=== PATIENT | male | born 1940 | race Caucasian/White ===

== ENCOUNTER 2017-10-04 00:20 | Observation (INO) | payer OTHER ==
--- NOTE | 2017-10-04 00:38 | CPEKG ---
Heart Rate: 73 RR Interval: 822 P-R Interval: 196 QRSD Interval: 136 QT Interval: 436 QTC Interval: 481 P [place]: 49 QRS [place]: 102 T Wave [place]: 8 EKG Severity - ABNORMAL ECG - EKG Impression: SINUS RHYTHM EKG Impression: RBBB AND LPFB Electronically Signed By: Migue Hill 04-Oct-2017 09:31:12
[2017-10-04 01:32] LABS: PLATELET COUNT 138 10^3/uL (150-400)
--- NOTE | 2017-10-04 01:52 | EDPHY ---
H & P Stated Complaint: cp Time Seen by Provider: 10/04/17 01:04 HPI/ROS: HPI The patient presents with chest pain which began at 5:00 p.m. Tonight while he was at rest. He describes it as a stinging left-sided chest pain that was intermittent. It feels like his prior NC that he had in February though is more subtle. The pain is not associated with any shortness of breath, nausea, vomiting, dizziness, diaphoresis. He took 2 doses of aspirin and called an advice line and was instructed to come into the emergency department. He has a history of an NC in February of 2017. He does walk daily about 45 min and does not experience chest pain . REVIEW OF SYSTEMS Constitutional: No fever, no chills. Eyes: No discharge. ENT: No sore throat. Cardiovascular: Positive for chest pain, no palpitations. Respiratory: No cough, no shortness of breath. Gastrointestinal: No abdominal pain, no vomiting. Genitourinary: No hematuria. Musculoskeletal: No back pain. Skin: No rashes. Neurological: No headache. PMHx: Known CAD Soc Hx: Housed PHYSICAL General Appearance: Alert, no distress Eyes: Pupils equal and round no pallor or injection ENT, Mouth: Mucous membranes moist Respiratory: There are no retractions, lungs are clear to auscultation Cardiovascular: Regular rate and rhythm Gastrointestinal: Abdomen is soft and non-tender, no masses, bowel sounds normal Neurological: A&O, moves all extremities Skin: Warm and dry, no rashes Musculoskeletal: Neck is supple non tender Extremities: symmetrical, full range of motion Psychiatric: Patient is oriented X 3, there is no agitation Source: Patient Exam Limitations: No limitations - Personal History Current Tetanus Diphtheria and Acellular Pertussis (TDAP): Yes - Medical/Surgical History Hx Asthma: No Hx Chronic Respiratory Disease: No Hx Diabetes: No Hx Cardiac Disease: No Hx Renal Disease: No Hx Cirrhosis: No Hx Alcoholism: No Hx HIV/AIDS: No Hx Splenectomy or Spleen Trauma: No Other PMH: appy ,mi, cardiac stents. tonsils. amp thumb as child - Social History Smoking Status: Former smoker Constitutional: Initial Vital Signs Temperature (C) 36.7 C 10/04/17 00:30 Heart Rate 72 10/04/17 00:30 Respiratory Rate 16 10/04/17 00:30 Blood Pressure 135/82 H 10/04/17 00:30 O2 Sat (%) 94 10/04/17 00:30 O2 Delivery Mode Room Air Allergies/Adverse Reactions: iodine Allergy (Verified 12/06/15 01:17) Home Medications: Medication Instructions Recorded Acyclovir [Zovirax 400 mg (*)] 400 mg PO TID 10/04/17 Bisoprolol Fumarate [Zebeta (*)] 2.5 mg PO DAILY 10/04/17 Efinaconazole [Jublia] 4 ml TP 10/04/17 Finasteride [Proscar 5 MG (*)] 5 mg PO DAILY 10/04/17 Simvastatin [Zocor] 40 mg PO 10/04/17 Ticagrelor [Brilinta] 90 mg PO BID 10/04/17 Medical Decision Making - Diagnostics EKG Interpretation: EKG: Complete interpretation has been separately recorded in the [facility] archive. 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 Differential Diagnosis: This is a 77-year-old male with known CAD status post stents placed for acute NC in February of 2017 who presents with chest pain lasting for several hours, occurring at rest, now resolved. Differential diagnosis includes ACS, costochondritis, GERD. In the emergency department, EKG, chest x-ray, basic labs were obtained. These were all normal. Patient does have right bundle-branch block. I do not have an old EKG for comparison. Given his history of CAD with pain which feels similar to his prior NC, I feel he should be admitted to the hospitalist. I have discussed the case with Dr. Krishna who will admit the patient. The patient is in agreement with the plan. - Data Points Laboratory Results: Laboratory Results 10/04/17 00:43 10/04/17 00:43 10/04/17 10/04/17 00:43 00:43 WBC 6.05 10^3/uL 10^3/uL (3.80-9.50) RBC 4.60 10^6/uL 10^6/uL (4.40-6.38) Hgb 14.3 g/dL g/dL (13.7-17.5) Hct 40.7 % % (40.0-51.0) MCV 88.5 fL fL (81.5-99.8) MCH 31.1 pg pg (27.9-34.1) MCHC 35.1 g/dL g/dL (32.4-36.7) RDW 14.4 % % (11.5-15.2) Plt Count 138 10^3/uL L 10^3/uL (150-400) MPV 9.0 fL fL (8.7-11.7) Neut % (Auto) 62.8 % % (39.3-74.2) Lymph % (Auto) 22.5 % % (15.0-45.0) [place] % (Auto) 7.4 % % (4.5-13.0) Eos % (Auto) 6.3 % % (0.6-7.6) Baso % (Auto) 0.7 % % (0.3-1.7) Nucleat RBC Rel Count 0.0 % % (0.0-0.2) Absolute Neuts (auto) 3.80 10^3/uL 10^3/uL (1.70-6.50) Absolute Lymphs (auto) 1.36 10^3/uL 10^3/uL (1.00-3.00) Absolute Monos (auto) 0.45 10^3/uL 10^3/uL (0.30-0.80) Absolute Eos (auto) 0.38 10^3/uL 10^3/uL (0.03-0.40) Absolute Basos (auto) 0.04 10^3/uL 10^3/uL (0.02-0.10) Absolute Nucleated RBC 0.00 10^3/uL 10^3/uL (0-0.01) Immature Gran % 0.3 % % (0.0-1.1) Immature Gran # 0.02 10^3/uL 10^3/uL (0.00-0.10) Sodium 138 mEq/L mEq/L (135-145) Potassium 4.2 mEq/L mEq/L (3.5-5.2) Chloride 101 mEq/L mEq/L (97-110) Carbon Dioxide 27 mEq/l mEq/l (22-31) Anion Gap 10 mEq/L mEq/L (8-16) BUN 18 mg/dL mg/dL (7-23) Creatinine 1.0 mg/dL mg/dL (0.7-1.3) Estimated GFR > 60 Glucose 100 mg/dL mg/dL (70-100) Calcium 9.3 mg/dL mg/dL (8.5-10.4) Troponin I < 0.012 ng/mL ng/mL (0.000-0.034) Departure - Departure Disposition: Home, Routine, Self-Care Clinical Impression: Chest pain Qualifiers: Chest pain type: unspecified Qualified Code(s): R07.9 - Chest pain, unspecified Condition: Good
[2017-10-04] MEDS ORDERED: ONDANSETRON DISINTEGRATING 4 MG TAB PO PRN (02:28)
[2017-10-04] MEDS ORDERED: ACETAMINOPHEN 325 MG TAB PO PRN (02:28)
[2017-10-04] MEDS ORDERED: ONDANSETRON 4 MG/2 ML VIAL IVP PRN (02:28)
--- NOTE | 2017-10-04 02:50 | PDGENHP ---
History and Physical - Chief Complaint Chest pain - History of Present Illness 77 yo M w/ hx of CAD presents after chest pain. Patient became upset today and then began to notice sharp, stinging left sided chest pain. This persisted for about 7 hours without significant change. He did walk up some stairs during this episode of pain and it did not seem to affect the pain. He denies any associated symptoms. He called the [facility] RN line and was advised to come to the ED for evaluation. He is currently comfortable and chest pain free. History Information - Allergies/Home Medication List Allergies/Adverse Reactions: iodine Allergy (Verified 12/06/15 01:17) Home Medications: Aspirin 10/04/17 [Last Taken Unknown] Bisoprolol Fumarate 10/04/17 [Last Taken Unknown] Brilinta 10/04/17 [Last Taken Unknown] Esomeprazole Sodium 10/04/17 [Last Taken Unknown] SIMVASTATIN 10/04/17 [Last Taken Unknown] Tamsulosin HCl 10/04/17 [Last Taken Unknown] I have personally reviewed and updated: family history, medical history - Past Medical History coronary artery disease - Family History Positive for: male first degree with history of premature CAD - Social History Smoking Status: Former smoker Review of Systems Review of Systems: ROS: 10pt was reviewed & negative except for what was stated in HPI & below Physical Exam Physical Exam: Temp Pulse Resp BP Pulse Ox 36.7 C 72 16 135/82 H 94 10/04/17 00:30 10/04/17 00:30 10/04/17 00:30 10/04/17 00:30 10/04/17 00:30 Constitutional: no apparent distress, not in pain Eyes: PERRL, EOMI Ears, Nose, Mouth, Throat: moist mucous membranes, no oral mucosal ulcers Cardiovascular: regular rate and rhythym, systolic murmur Respiratory: no respiratory distress, no rales or rhonchi Skin: warm, normal color Musculoskeletal: full muscle strength, no muscle tenderness Neurologic: AAOx3, CN II-XII Intact Psychiatric: interacting appropriately, not anxious Lab Data & Imaging Review 10/04/17 00:43 10/04/17 00:43 WBC 6.05 10^3/uL (3.80-9.50) 10/04/17 00:43 RBC 4.60 10^6/uL (4.40-6.38) 10/04/17 00:43 Hgb 14.3 g/dL (13.7-17.5) 10/04/17 00:43 Hct 40.7 % (40.0-51.0) 10/04/17 00:43 MCV 88.5 fL (81.5-99.8) 10/04/17 00:43 MCH 31.1 pg (27.9-34.1) 10/04/17 00:43 MCHC 35.1 g/dL (32.4-36.7) 10/04/17 00:43 RDW 14.4 % (11.5-15.2) 10/04/17 00:43 Plt Count 138 10^3/uL (150-400) L 10/04/17 00:43 MPV 9.0 fL (8.7-11.7) 10/04/17 00:43 Neut % (Auto) 62.8 % (39.3-74.2) 10/04/17 00:43 Lymph % (Auto) 22.5 % (15.0-45.0) 10/04/17 00:43 [place] % (Auto) 7.4 % (4.5-13.0) 10/04/17 00:43 Eos % (Auto) 6.3 % (0.6-7.6) 10/04/17 00:43 Baso % (Auto) 0.7 % (0.3-1.7) 10/04/17 00:43 Nucleat RBC Rel Count 0.0 % (0.0-0.2) 10/04/17 00:43 Absolute Neuts (auto) 3.80 10^3/uL (1.70-6.50) 10/04/17 00:43 Absolute Lymphs (auto) 1.36 10^3/uL (1.00-3.00) 10/04/17 00:43 Absolute Monos (auto) 0.45 10^3/uL (0.30-0.80) 10/04/17 00:43 Absolute Eos (auto) 0.38 10^3/uL (0.03-0.40) 10/04/17 00:43 Absolute Basos (auto) 0.04 10^3/uL (0.02-0.10) 02/23/18 00:43 Absolute Nucleated RBC 0.00 10^3/uL (0-0.01) 10/04/17 00:43 Immature Gran % 0.3 % (0.0-1.1) 10/04/17 00:43 Immature Gran # 0.02 10^3/uL (0.00-0.10) 10/04/17 00:43 Sodium 138 mEq/L (135-145) 10/04/17 00:43 Potassium 4.2 mEq/L (3.5-5.2) 10/04/17 00:43 Chloride 101 mEq/L (97-110) 10/04/17 00:43 Carbon Dioxide 27 mEq/l (22-31) 10/04/17 00:43 Anion Gap 10 mEq/L (8-16) 10/04/17 00:43 BUN 18 mg/dL (7-23) 10/04/17 00:43 Creatinine 1.0 mg/dL (0.7-1.3) 10/04/17 00:43 Estimated GFR > 60 10/04/17 00:43 Glucose 100 mg/dL (70-100) 10/04/17 00:43 Calcium 9.3 mg/dL (8.5-10.4) 10/04/17 00:43 Troponin I < 0.012 ng/mL (0.000-0.034) 10/04/17 00:43 Visualized and Interpreted EKG results: Yes EKG Interpretation: Positive for: normal sinsus rhythm, right bundle branch block Assessment & Plan Assessment: 77 yo M w/ hx of CAD presents with chest pain. Plan: 1. Chest pain - Present for about 7 hours after episode of emotional stress. Not classic for anginal chest pain noting no variation with activity but does have history of stent placement last February. HEART score of 4 so will be admitted for inpatient risk stratification. - Admit to PCU for observation - Monitor on telemetry, trend cardiac enzymes - Nuclear stress test ordered 2. Hx of CAD - Had 2 stents placed in February of 2017 while in [place]. He has been compliant with BB, ASA, statin, and ticagrelor. - Continue home meds - Acute management as above 3. GERD - On PPI Diet - NPO pending stress test Ppx - LMWH Code - Full Dispo - Admit to PCU under observation status
[2017-10-04] MEDS ORDERED: PANTOPRAZOLE SODIUM 40 MG TAB PO SCH (09:00)
[2017-10-04] MEDS ORDERED: FINASTERIDE 5 MG TAB PO SCH (09:00)
[2017-10-04] MEDS ORDERED: ASPIRIN 81 MG CHEWABLE TAB PO SCH (09:00)
[2017-10-04] MEDS ORDERED: BISOPROLOL FUMARATE 5 MG TAB PO SCH (09:00)
[2017-10-04] MEDS ORDERED: TICAGRELOR 90 MG TAB PO SCH (09:00)
[2017-10-04] MEDS ORDERED: NON-FORMULARY NEW DRUG (Omeprazole [Omeprazole] 20 MG) PO SCH (09:00)
[2017-10-04] MEDS ORDERED: ENOXAPARIN 40 MG/0.4 ML SYR SC SCH (09:00)
[2017-10-04] MEDS ORDERED: REGADENOSON 0.4 MG/5 ML SYR IVP ONE (10:10)
--- NOTE | 2017-10-04 10:25 | ASMTCASEMG ---
Living Arrangements What is your living Answers: Alone arrangement? Who do you live with? Type Of Residence What kind of residence do Answers: House you live in? Discharge Plan Comments Coordination Status Comments Notes: Pt is a 77 y/o man admitted for chest pain. Pt will have a stress test at some point. Pt will most likely d/c independent when medically stable. No therapies ordered at this time. CM available for changes. Plan: Independent Date Signed: 10/04/2017 10:24 AM Electronically Signed By:PERLITA Black
--- NOTE | 2017-10-04 11:25 | PDCARST ---
CAR Stress Test Results Type of Stress Test: nuclear TM stress Indication: cp/ PMH CAD Description of Procedure: After informed consent was obtained, pt was exercised according to Toño Protocol. Monitoring was performed with standard stress test man electrode placement. Vital signs were monitored according to protocol throughout the procedure. STRESS EKG AND HEMODYNAMIC DATA. Exercise time: 5 min. This is equivalent to: 6.1 METS. Resting heart rate: 81 bpm. Resting blood pressure: 126/78 mmHg. Resting O2 saturation:91 %. Peak heart rate: 142 bpm. This is 100% of age predicted maximum heart rate response. Peak blood pressure: 174/90 mmHg. Exercise O2: 94%. Arrhythmias: Rest- occasional PVCs; exercise- occasional PVCs; recovery- occasional PVCs and frequent PACs. Reason for termination: The test was stopped due to maximal effort. Symptoms: The patient experienced no typical symptoms of angina during stress or recovery. STRESS TEST ANALYSIS. Baseline ECG: SR with RBBB and 1 PVC. Stress ECG: SR, RBBB, 1 mm upsloping STD. exercise induced ischemic ECG changes: indeterminate due to RBBB. Rhythm: Occasional PVCs and frequent PACs noted during exercise and recovery. Blood pressure: Normal blood pressure response to exercise. Exercise tolerance: The patient has normal exercise tolerance adjusted for age and gender. Symptoms: No exercise induced symptoms. Impression: IMPRESSIONS: Stress ECG is indeterminate for ischemia given RBBB precluding accurate interpretation of V1 and V2. Adequate exercise tolerance, no cp during exertion, and normal BP and oximetry. Conclusion: Await nuclear images.
[2017-10-04 13:08] VITALS: BP 135/87
[2017-10-04 13:10] VITALS: PULSE 75; RESP 18; TEMP 97.5; O2SAT 94
[2017-10-04] MEDS ORDERED: MAGNESIUM AMINO ACID CHELATE PO SCH ×2 (21:00)
[2017-10-04] MEDS ORDERED: NON-FORMULARY NEW DRUG (Simvastatin [Zocor] 40 MG) PO SCH (21:00)
[2017-10-04] MEDS ORDERED: ATORVASTATIN CALCIUM 20 MG TAB PO SCH (21:00)
--- NOTE | 2017-10-05 02:26 | GDS ---
[f rep st] DISCHARGE SUMMARY DISCHARGE DIAGNOSES: 1. Chest pain with negative stress testing. 2. Coronary artery disease, status post recent stenting. HISTORY: The patient is a 77-year-old male, who developed atypical left-sided chest pain. He had 2 stents placed while in [place] in February 2017. He is on a good medical regimen including aspirin, Bril inta, statin, and a beta herbie. He was admitted to observation with serial troponins and EKGs that were unremarkable. Stress test today showed an ejection fraction of 45% and a fixed inferolateral w all defect consistent with previous infarct and some subtle inferior wall hypokinesis. It is suspect ed that this is due to an infarct he sustained in [place]. There was no reversible defect. He follo ws with Dr. Miranda at [facility] and will follow up with them regarding further m anagement, but acute cardiac catheterization was not felt to be needed at this time. DISCHARGE MEDICATIONS: Please see computerized record for full detailed list. There were no new med ications given at time of hospital discharge. ADDITIONAL DISCHARGE INSTRUCTIONS: Follow up with Dr. Taveras and Dr. Miranda at [facility] for further care. Greater than 30 minutes' time was spent arranging this discharge. Patient was seen and examined by jose m chau at the time of discharge. /[id number]/MODL
== END 2017-10-04 16:14 | disposition home or self-care (01) ==
LOC: F2W 03:58
PROVIDERS: ADMIT Student in an Organized Health Care Education/Training Program; ATTEND Internal Medicine
DX: R07.9 Chest pain, unspecified (principal); I25.2 Old myocardial infarction; I25.10 Atherosclerotic heart disease of native coronary artery without angina pectoris; I77.810 Thoracic aortic ectasia; K21.9 Gastro-esophageal reflux disease without esophagitis; Z87.891 Personal history of nicotine dependence; Z95.5 Presence of coronary angioplasty implant and graft
CPT/HCPCS: 71046; 78452; 93005; 93017; 99284; A9500; G0378; J1650; J2785

== ENCOUNTER 2018-11-27 22:52 | Emergency (ER) | payer OTHER ==
--- NOTE | 2018-11-27 23:01 | EDPHY ---
General - History Smoking Status: Former smoker Time Seen by Provider: 11/27/18 23:01 Narrative: CLINICAL IMPRESSION: Allergic reaction, chest tightness ASSESSMENT/PLAN: Patient is an 78-year-old male with a significant history of coronary artery disease and known allergy to shellfish presents to the emergency department with possible allergic reaction. He is well-appearing and in no acute distress. His lungs were clear to auscultation bilaterally, no evidence of hypoxia or respiratory distress. The patient did have complaints of chest tightness and mild shortness of breath, an ECG was obtained which revealed a right bundle branch block with frequent PVCs. Troponin was 0.04, negative. No findings to suggest ACS; I suspect his brief chest tightness and shortness of breath was secondary to his allergic reaction. There was no evidence of angioedema, stridor, respiratory distress or airway compromise. Patient was given Benadryl, Pepcid and Solu-Medrol in the emergency department with improvement of his symptoms. I suspect patient was exposed to shellfish at the libertarian he was at. There were no findings to suggest anaphylaxis, SJS/TENS, medication reaction or infectious process. On repeat examination at 0011 he is well-appearing, denies any complaints. Patient will continued to be monitored in the emergency department, Dr. Joya will resume care of this patient at this time. DIFFERENTIAL DX: Differential diagnosis including but not limited to anaphylaxis, urticaria, TENS /SJS, medication reaction, infectious process ED COURSE: 2316: Case discussed with Dr. Joya. ECG revealed right bundle branch block with frequent PVCs consistent with trigeminy. When reviewing his old ECG, underlying right bundle branch block is present, overall very similar appearing. 2335: P OC troponin is negative at 0.04. 0011: On repeat examination the patient is resting comfortably. His facial flushing has resolved, his conjunctiva are now normal appearing. He denies any physical complaints. His heart rate is 70, oxygen saturation is 96% on room air. 0024: All aspects of this patient's care was discussed with Dr. Joya, he will resume care of this patient at this time. CHIEF COMPLAINT: Possible allergic reaction HPI: Patient is an 78-year-old male with a significant history of coronary artery disease and known allergy to shellfish presents to the emergency department with possible allergic reaction. Patient reports he was at a libertarian earlier this evening, he was not paying attention to what he ate, during the libertarian he started to experience intense itching of his hands and uncontrollable sneezing. He subsequently started to develop some tightness in his chest with associated shortness of breath. He states this feels exactly like similar episodes he has had in the past when exposed to shellfish. Symptoms started approximately 2.5 hr prior to arrival, he took a Claritin and feels that his symptoms are mildly improving. He denies any oral swelling, facial swelling, difficulty swallowing or change in voice. He also denies any nausea, vomiting, chest pain, persistent chest tightness, persistent shortness of breath or abdominal pain. He has not noticed any rash. 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 PMH: Seasonal allergies Pertinent Past Surgical History: Denies Family History: Not contributory Social History: Denies REVIEW OF SYSTEMS: All other systems negative Constitutional: No fever. Eyes: No discharge, vision change ENT: No sore throat, congestion, ear pain. Cardiovascular: Chest tightness, denies palpitations. Respiratory: Shortness of breath, denies cough. Gastrointestinal: No abdominal pain, no vomiting. Genitourinary: No hematuria, dysuria, flank pain, pelvic pain Musculoskeletal: No back pain, no myalgias. Skin: Itching. Denies rash. Neurological: No headache, dizziness, weakness. PHYSICAL EXAM: General Appearance: Alert, well-appearing, no acute distress. HENT: Normocephalic, atraumatic. Face is mildly flushed, faint macular rash on his forehead. Bilateral external ears are normal. Bilateral tympanic membranes are normal with pearly bob reflex. Nares are clear, mucosa is pink. Oropharynx is clear, uvula is midline. There is no tonsillar enlargement or exudate. There is no evidence of angioedema. Phonation is normal without hot potato voice, there is no stridor. Eyes: PERRLA, EOMI. Conjunctiva injected. Neck: Supple, nontender. Respiratory: There are no retractions, lungs are clear to auscultation. There is no wheeze or rhonchi. Cardiac: Irregular rhythm, no murmurs or gallops. Gastrointestinal: Abdomen is soft, nontender, bowel sounds normal, no masses/ hernia, no rigidity, guarding or focal peritoneal findings. Neurological: Alert and oriented x 3, CN 2-12 grossly intact. Skin: Warm and dry. See above, no other rash appreciated. Musculoskeletal: Extremities are symmetrical, full range of motion, no tenderness, deformity, swelling, or erythema. Psychiatric: Patient is oriented X 3, there is no agitation. MEDICAL DECISION MAKING: Patient was seen independently. Secondary supervising physician at time of evaluation was Dr. Joya. Summary: See Assessment and Plan. Clinical lab tests: Not applicable. Independent visualization of images, tracing, or specimens: Not applicable. Decision to obtain medical records or history from someone other than the patient: No Review / Summarize previous medical records: Yes Discussed patient with another provider: Yes, Dr. Joya Patient Progress: Stable, dispo pending at this time. (Ellie Downs) Medical Decision Making: EKG interpretation by me on record in [employer] system. Impression time of EKG 2:40 a.m. Sinus rhythm rate of 84, ventricular trigeminy, stable from the patient's previous EKGs no acute ischemia on this EKG. Patient does not have chest pain. This was repeated due to his cardiac history, and additionally his allergic reaction presentation. Patient re-evaluated 2:56 a.m. Patient continues to do well there has been no progression of allergic reaction is been monitored here for over 4 hr and has done very well. Denies any chest pain or shortness of breath. No progression of allergic reaction he would like to go home. We discussed return precautions he understands return emergency room if develops worsening symptoms this includes chest pain, shortness of breath, fever , vomiting, not doing well Patient had a repeat troponin 0.04 same as his previous troponin there has been no increased. EKG has been stable. Patient eager for discharge he explains to me that he had allergic reaction tonight with Hand itching, runny nose, some shortness of breath. No chest pain no chest pressure. He feels much better now. He would like to go home. I do feel that it is reasonable to discharge him. He has had no progression of allergic reaction we discussed return precautions. He is comfortable this plan (James Joya) - Objective Vital Signs: Initial Vital Signs Temperature (C) 36.4 C 11/27/18 22:56 Heart Rate 84 11/27/18 22:56 Respiratory Rate 20 11/27/18 22:56 Blood Pressure 116/92 H 11/27/18 22:56 O2 Sat (%) 93 11/27/18 22:56 O2 Delivery Mode Room Air Allergies/Adverse Reactions: iodine Allergy (Verified 11/27/18 22:56) Rash shellfish derived Allergy (Verified 11/27/18 22:56) Unknown Home Medications: Medication Instructions Recorded Aspirin [Aspirin 81mg (*)] 81 mg PO DAILY 10/04/17 Bisoprolol Fumarate [Zebeta (*)] 2.5 mg PO DAILY 10/04/17 Finasteride [Proscar 5 MG (*)] 5 mg PO DAILY 10/04/17 Magnesium Amino Acid Chelate 250 mg PO HS 10/04/17 [Magnesium] Omeprazole 20 mg PO DAILY 10/04/17 Simvastatin [Zocor] 40 mg PO HS 10/04/17 EPINEPHrine [Epipen 0.3 MG] 0.3 mg IM ONCE #2 syr 11/28/18 Famotidine [Pepcid 20 MG (*)] 20 mg PO BID #6 tab 11/28/18 diphenhydrAMINE [Benadryl 25 MG 25 mg PO BID #6 tab 11/28/18 (*)] methylPREDNISolone [Medrol Dose 1 each PO AD #1 ea 11/28/18 Viktor] Laboratory Results: 11/27/18 23:20 POC Troponin I 0.04 ng/mL ng/mL (0.00-0.08) Medications Given: Discontinued Medications Diphenhydramine HCl (Benadryl Injection) 50 mg IVP EDNOW ONE Stop: 11/27/18 23:07 Last Admin: 11/27/18 23:14 Dose: 50 mg Sodium Chloride (Ns) 1,000 mls @ 0 mls/hr IV ONCE ONE; Wide Open PRN Reason: Protocol Stop: 11/27/18 23:07 Last Admin: 11/27/18 23:20 Dose: 1,000 mls Famotidine/Sodium Chloride (Pepcid 20 Mg (Premix)) 50 mls @ 200 mls/hr IV EDNOW ONE Stop: 11/27/18 23:20 Last Admin: 11/27/18 23:15 Dose: 50 mls Methylprednisolone Sodium Succinate (Solu-Medrol) 125 mg IVP EDNOW ONE Stop: 11/27/18 23:07 Last Admin: 11/27/18 23:14 Dose: 125 mg Point of Care Test Results: Chemistry 11/27/18 23:20 POC Troponin I 0.04 ng/mL ng/mL (0.00-0.08) Departure - Departure Disposition: Home, Routine, Self-Care Clinical Impression: Allergic reaction Qualifiers: Encounter type: initial encounter Qualified Code(s): T78.40XA - Allergy, unspecified, initial encounter Condition: Good Instructions: Allergies (ED) Additional Instructions: DISCHARGE INSTRUCTIONS FROM YOUR PROVIDER Thank you for visiting our emergency department today. Please keep in mind that discharge from the emergency department does not mean that there is nothing wrong - it simply means that we have not identified an emergency condition that requires further evaluation or treatment in the hospital. You should always plan to follow up with primary care for re-evaluation of your condition in the next 1-2 days. Avoid any known allergens and exposures. Take Zyrtec 10 mg nightly. This is over the counter. Pepcid 40 mg daily. This is over the counter. Benadryl 25 mg every 4-6 hours as needed for breakthrough itching, hives and/or swelling. This may make you sleepy, please do not drive or operate machinery. I would also recommend that you take Zyrtec daily, please follow instructions. Medrol Dosepack (STEROID) as prescribed. More than 50% of people will notice resolution of allergy symptoms after starting this medication. BUT, over 50% of people will notice recurrence of allergy symptoms called rebound when the medication is stopped. If a steroid is taken close to allergy testing, the results will be affected. Schedule a follow-up visit with your primary care provider for re-evaluation next week. Watch closely for any signs of throat tightness and/or difficulty breathing, worsening rash , oral swelling , difficulty swallowing , facial swelling, faintness or for any other concerning symptom. These symptoms can suggest a life threatening allergic reaction and require immediate attention of a medical professional. People present with illnesses and injuries in different ways, and it is always possible that we have missed something. Again, thank you for choosing our emergency department. We hope that you feel better. Referrals: Nico Anders MD [Medical Doctor] - As per Instructions Prescriptions: diphenhydrAMINE [Benadryl 25 MG (*)] 25 mg PO BID #6 tab EPINEPHrine [Epipen 0.3 MG] 0.3 mg IM ONCE #2 syr Famotidine [Pepcid 20 MG (*)] 20 mg PO BID #6 tab methylPREDNISolone [Medrol Dose Viktor] 1 each PO AD #1 ea
[2018-11-27] MEDS ORDERED: FAMOTIDINE 20 MG/NACL 50 ML IV ONE (23:06)
[2018-11-27] MEDS ORDERED: NS 1,000 ML IV ONE (23:06)
[2018-11-27] MEDS ORDERED: methylPREDNISolone SOD SUCC 125 MG/2 ML VIAL IVP ONE (23:06)
[2018-11-28 03:28] VITALS: BP 102/48
--- NOTE | 2018-11-28 07:46 | CPEKG ---
Test Reason : OPEN Blood Pressure : / mmHG Vent. Rate : 084 BPM Atrial Rate : 085 BPM P-R Int : 182 ms QRS Dur : 141 ms QT Int : 408 ms P-R-T Axes : 045 110 002 degrees QTc Int : 483 ms Sinus rhythm Ventricular trigeminy RBBB and LPFB Inferior infarct, old Confirmed by James Joya ([id number]) on 11/28/2018 7:45:54 AM Referred By: James Joya Confirmed By:James Joya
--- NOTE | 2018-11-28 07:46 | CPEKG ---
Test Reason : OPEN Blood Pressure : / mmHG Vent. Rate : 089 BPM Atrial Rate : 088 BPM P-R Int : 176 ms QRS Dur : 143 ms QT Int : 408 ms P-R-T Axes : 041 245 010 degrees QTc Int : 497 ms Sinus rhythm Ventricular trigeminy Right bundle branch block Confirmed by James Joya ([id number]) on 11/28/2018 7:45:55 AM Referred By: James Joya Confirmed By:James Joya
== END 2018-11-28 03:27 | disposition home or self-care (01) ==
DX: T78.40XA Allergy, unspecified, initial encounter (principal); R07.89 Other chest pain; E86.9 Volume depletion, unspecified; Z87.891 Personal history of nicotine dependence
CPT/HCPCS: 93005; 96361; 96365; 96375; 99284; J1200; J2930; 84484-ER